=== PATIENT | female | born 1955 | race Caucasian/White ===

== ENCOUNTER 2020-06-14 10:52 | Outpatient (NON) | payer MEDICARE, OTHER, SELFPAY ==
[2020-06-14 22:56] LABS: SARS-CoV-2 RNA PCR Negative
== END 2020-06-14 10:53 ==
PROVIDERS: PCP Family Medicine; Visit Provider Nurse Practitioner Family
DX: Z20.828 Contact with and (suspected) exposure to other viral communicable diseases (principal); R68.89 Other general symptoms and signs; J06.9 Acute upper respiratory infection, unspecified; R05 Cough
CPT/HCPCS: 87635; C9803; U0003

== ENCOUNTER 2020-07-06 12:55 | Outpatient (CLI) | payer MEDICARE, OTHER, SELFPAY ==
--- NOTE | ~2020-07-06 | XR_ITS ---
EXAMINATION: XR chest 2V DATE: 07/06/2020 13:23 INDICATION: Cough. TECHNIQUE: Frontal and lateral views of the chest were obtained. COMPARISON: Chest 2 views 09/13/2017 FINDINGS: The chest demonstrates clear lungs without pneumonia, pleural effusion, or pneumothorax. Th e heart size is normal. IMPRESSION: 1. No acute cardiopulmonary disease. Reviewed, dictated and finalized at location B. LY READINESS SUPPORT ASSISTANT
== END 2020-07-06 12:56 | disposition home or self-care (01) ==
PROVIDERS: PCP Family Medicine; Visit Provider Nurse Practitioner Family
DX: R05 Cough (principal)
CPT/HCPCS: 71046

== ENCOUNTER → 2020-12-20 06:47 | Outpatient (CLI) | payer MEDICARE, OTHER, SELFPAY ==
[2020-12-20 19:58] LABS: SARS-CoV-2 RNA PCR Negative
== END ==
PROVIDERS: PCP Family Medicine; Visit Provider Nurse Practitioner Family
DX: R05 Cough (principal); Z20.822 Contact with and (suspected) exposure to COVID-19
CPT/HCPCS: C9803; U0003; U0005

== ENCOUNTER 2021-01-11 10:18 | Outpatient (CLI) | payer MEDICARE, OTHER, SELFPAY ==
--- NOTE | ~2021-01-11 | MM_ITS ---
EXAMINATION: MM screening francesco BI w meagan HISTORY: Screening TECHNIQUE: Craniocaudal and mediolateral oblique 3-D tomosynthesis images were obtained and synthetic 2-D images were generated. CAD analysis was submitted and interpreted. COMPARISON: Comparison to multiple prior studies sequentially, with oldest reviewed study dated 11/09/2015. BREAST PARENCHYMAL COMPOSITION: There are scattered areas of fibroglandular density. FINDINGS: There is no evidence of suspicious mass, calcification, or architectural distortion to sugg est malignancy in either breast. There has been no suspicious interval change. IMPRESSION: 1. No mammographic evidence of malignancy. 2. Recommend routine screening mammography in one year. BI-RADS Category 1: Negative Reviewed, dictated and finalized at location A.
== END 2021-01-11 10:19 | disposition home or self-care (01) ==
LOC: ANHIMG 10:21
PROVIDERS: PCP Family Medicine; Visit Provider Obstetrics & Gynecology
DX: Z12.31 Encounter for screening mammogram for malignant neoplasm of breast (principal)
CPT/HCPCS: 77063; 77067

== ENCOUNTER 2022-09-07 09:38 | Outpatient (CLI) | payer MEDICARE, SELFPAY ==
--- NOTE | ~2022-09-07 | MM_ITS ---
EXAMINATION: MM screening francesco BI w meagan HISTORY: Screening TECHNIQUE: Craniocaudal and mediolateral oblique 3-D tomosynthesis images were obtained and synthetic 2-D images were generated. CAD analysis was submitted and interpreted. COMPARISON: Comparison to multiple prior studies sequentially, with oldest reviewed study dated 10/2016. BREAST PARENCHYMAL COMPOSITION: Breast composed of scattered areas of fibroglandular density FINDINGS: There is no evidence of suspicious mass, calcification, or architectural distortion to sugg est malignancy in either breast. There has been no suspicious interval change. IMPRESSION: 1. No mammographic evidence of malignancy. 2. Recommend routine screening mammography in one year. BI-RADS Category 1: Negative Reviewed, dictated and finalized at location A. AG APPLIQUER
--- NOTE | ~2022-09-07 | DEXA_ITS ---
Bone Density Report Name: FABIÁN ANNE Age: 67 Sex: Female Ethnicity: White Date of : 1955 Indication: osteopenia; monitoring treatment; hysterectomy; postmenopausal Referring Provider: LIANG TSE Study: Bone densitometry was performed. Exam Date: September 07, 2022 Accession number: [id number] Bone Density: Region BMD T-score Z-score Classification AP Spine(L1-L4) 0.907 -1.3 0.8 Osteopenia Femoral Neck (Left) 0.618 -2.1 -0.3 Osteopenia Total Hip (Left) 0.670 -2.2 -0.8 Osteopenia Femoral Neck (Right) 0.663 -1.7 0.1 Osteopenia Total Hip (Right) 0.691 -2.1 -0.6 Osteopenia Total Hip Mean 0.680 -2.2 -0.7 Osteopenia World Health Organization criteria for BMD impression classify patients as: Normal (T-score at or above -1.0), Osteopenia (T-score between -1.0 and -2.5), or Osteoporosis (T-score at or below -2.5). 10-year Fracture Risk: FRAX not reported because: Treated for osteoporosis Previous Exams: Region Exam Age BMD T-score BMD Change BMD Change Date g/cm2 vs Baseline vs Previous AP Spine (L1-L4) 09/07/2022 67 0.907 -1.3 -0.003 (-0.3%) -0.033 (-3.5%) 07/03/2018 63 0.939 -1.0 0.030 (3.3%)* 0.030 (3.3%)* 11/23/2015 60 0.909 -1.3 Total Hip(Left) 09/07/2022 67 0.670 -2.2 -0.016 (-2.3%) -0.017 (-2.4%) 07/03/2018 63 0.687 -2.1 0.001 (0.1%) 0.001 (0.1%) 11/23/2015 60 0.686 -2.1 Total Hip(Right) 09/07/2022 67 0.691 -2.1 -0.019 (-2.6%) -0.026 (-3.7%) 07/03/2018 63 0.717 -1.8 0.008 (1.1%) 0.008 (1.1%) 11/23/2015 60 0.710 -1.9 *Denotes significance at 95% confidence level, LSC for AP Spine = 0.022 g/cm2, LSC for Total Hip = 0.027 g/cm2 Clinical Information Provided by Patient: Is being treated for osteoporosis Has used the following medications: Evista (i.e. raloxifene), Vitamin D Has the following medical conditions: Hysterectomy Patient maximum height was 62.5 Menopause Age: 38 No regular weight bearing exercise Onset of menses at age 9 Number of children 2 Impression: The patient has low bone mass, based on the Left Total Hip T-score. The BMD for the AP Spine (L1-L4) decreased, changing by -3.5% since the last DXA exam. Discussion: SIGNIFICANT BONE LOSS OBSERVED. Adherence to therapy (including calcium and vitamin D intake) should be assessed. If compliance is not a factor, review management and exclusion of secondary causes of bone loss. It is important to ask patien
== END 2022-09-07 09:39 | disposition home or self-care (01) ==
PROVIDERS: PCP Family Medicine; Visit Provider Obstetrics & Gynecology Gynecology
DX: Z12.31 Encounter for screening mammogram for malignant neoplasm of breast (principal); M85.80 Other specified disorders of bone density and structure, unspecified site; Z78.0 Asymptomatic menopausal state
CPT/HCPCS: 77063; 77067; 77080

== ENCOUNTER 2025-05-20 09:04 | Outpatient (CLI) | payer MEDICARE, SELFPAY ==
--- NOTE | ~2025-05-20 | DEXA_ITS ---
Bone Density Report Name: FABIÁN ANNE Age: 69 Sex: Female Ethnicity: White Date of : 1955 Indication: osteopenia; monitoring treatment; height loss; hysterectomy; Referring Provider: LIANG TSE Study: Bone densitometry was performed. Exam Date: May 20, 2025 Accession number: [id number] Bone Density: Region BMD T-score Z-score Classification AP Spine(L1-L4) 0.903 -1.3 0.9 Osteopenia Femoral Neck (Left) 0.578 -2.4 -0.5 Osteopenia Total Hip (Left) 0.713 -1.9 -0.3 Osteopenia Femoral Neck (Right) 0.598 -2.3 -0.4 Osteopenia Total Hip (Right) 0.697 -2.0 -0.4 Osteopenia Total Hip Mean 0.705 -2.0 -0.4 Osteopenia World Health Organization criteria for BMD impression classify patients as: Normal (T-score at or above -1.0), Osteopenia (T-score between -1.0 and -2.5), or Osteoporosis (T-score at or below -2.5). 10-year Fracture Risk: FRAX not reported because: Treated for osteoporosis Previous Exams: Region Exam Age BMD T-score BMD Change BMD Change Date g/cm2 vs Baseline vs Previous AP Spine (L1-L4) 05/20/2025 69 0.903 -1.3 -0.006 (-0.7%) -0.004 (-0.4%) 09/07/2022 67 0.907 -1.3 -0.003 (-0.3%) -0.033 (-3.5%) 07/03/2018 63 0.939 -1.0 0.030 (3.3%)* 0.030 (3.3%)* 11/23/2015 60 0.909 -1.3 Total Hip(Left) 05/20/2025 69 0.713 -1.9 0.028 (4.0%)* 0.043 (6.5%)* 09/07/2022 67 0.670 -2.2 -0.016 (-2.3%) -0.017 (-2.4%) 07/03/2018 63 0.687 -2.1 0.001 (0.1%) 0.001 (0.1%) 11/23/2015 60 0.686 -2.1 Total Hip(Right) 05/20/2025 69 0.697 -2.0 -0.012 (-1.7%) 0.006 (0.9%) 09/07/2022 67 0.691 -2.1 -0.019 (-2.6%) -0.026 (-3.7%) 07/03/2018 63 0.717 -1.8 0.008 (1.1%) 0.008 (1.1%) 11/23/2015 60 0.710 -1.9 *Denotes significance at 95% confidence level, LSC for AP Spine = 0.022 g/cm2, LSC for Total Hip = 0.027 g/cm2 Clinical Information Provided by Patient: Is being treated for osteoporosis Has used the following medications: Evista (i.e. raloxifene), Vitamin D Has the following medical conditions: Hysterectomy Patient maximum height was 63.0 Menopause Age: 38 No regular weight bearing exercise Drinks caffeinated beverages Onset of menses at age 8 Number of children 2 Impression: The patient has low bone mass, based on the Left Femoral Neck T-score. No significant bone loss was observed. Discussion: PATIENT UNDER TREATMENT WITH NO SIGNIFICANT BMD LOSS SINCE LAST EXAM. In an untreated patient, BMD typically declines with age. A lack of decline or gain is usually a sign that treatment is efficacious and fracture risk is reduced. It is important to ask patients whether they are taking their medications and to encourage continued and appropriate compliance with their osteoporosis therapies to reduce fracture risk. It is also important to review their risk factors and encourage appropriate calcium and vitamin D intakes, exercise, fall prevention and other lifestyle measures. Follow-Up: Consider a repeat BMD and Vertebral Fracture Assessment (VFA) exam in 2 years or sooner if medically necessary, to reassess this patient's status. Reported by: RUFUS on 05/20/2025 9:42:00 AM. Reviewed, dictated and finalized at location A.
--- OUTSIDE RECORDS SUMMARY | 2025-05-20 09:41 | XMS_ITS | Encounter Summary ---
Author Organization [facility] Address [address] [place] [address] Care Team Providers Care Forest Fire Fighters Dispatcher Name Role Phone Kenny Knight MD Primary Care Provider Encounter Details Date Type Department Care Team (Late st Contact Info) Description 02/11/2019 Lab Requisition [facility] DermPath Lab [address] [place] [address] Oliver Payne MD [address] [place] [address] Social History Tobacco Use Types Packs/Day Years Used Date Smoking Tobacco: Never Assessed Comments Unknown Sex and Gender Information Value Date Recorded Sex Assigned at Not on file Legal 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 Gender Identity Not on file Sexual Orientation Not on file documented as of this encounter Plan of Treatment Not on file documented as of this encounter Procedures Procedure Name Priority Date/Time Associated Diagnosis Comments DERMATOPATHOLOGY Routine 02/10/2019 12:0 0 AM CDT documented in this encounter Results * DERMATOPATHOLOGY (02/10/2019 12:00 AM CDT) Case Report Dermatopathology Report Case: [id number] Authorizing Provider: Oliver Payne MD Collected: 02/10/2019 12:00 AM Pathologist: Haley Rivera MD Received: 02/11/2019 11:43 AM Specimen: Skin, right upper back 2:05 PM CDT DERMATOPATHOLOGY LABORATORY Final Diagnosis Specimen A. SKIN, right upper back: SEBORRHEIC KERATOSIS, IRRITATED AND INFLAMED (L82.0) PRESENT AT MARGIN 2:05 PM CDT DERMATOPATHOLOGY LABORATORY at 1405 CDT Clinical History Changing lesion. Check margins. 2:05 PM CDT DERMATOPATHOLOGY LABORATORY Gross Description Specimen A: Received is one formalin filled container labeled with the patient's name and designated right upper back. The specimen consists of a shave biopsy (3 pieces) measuring [id number], [id number], [id number]. The margins are inked green. Jar 0+. 2:05 PM CDT DERMATOPATHOLOGY LABORATORY Microscopic Description Specimen A. SKIN, right upper back: Sections show acanthosis, papillomatosis, hyperkeratosis, and squamous eddies. There is a lymphohistiocytic infiltrate within the papillary dermis. This lesion is present at the margin of the specimen. 2:05 PM CDT DERMATOPATHOLOGY LABORATORY Disclaimer An external and internal positive and negative controls are appropriate for the histochemical, immunohistochemical and immunofluorescence stain(s) in this case (if any), except where stated explicitly. The performance characteristics of the stain(s) cited in this report were developed and its performance characteristic determined by the Dermatopathology Laboratory at [facility], directed by Dr. David Gomez. These tests need not be, and therefore are not, approved by the [place] Food and Drug Administration. The tests are used for clinical purposes. Billing Codes Specimen Charges Stain Charges 70983 1 2:05 PM CDT DERMATOPATHOLOGY LABORATORY Embedded Images 2:05 PM CDT DERMATOPATHOLOGY LABORATORY Pathology/Cytolog y TISSUE SPECIMEN FROM SKIN / Unknown 02/10/2019 02/11/2019 11:43 AM CDT us Oliverman Payne MD LAB - PATHOLOGY/CYTOLOGY YVONNE HYMAN Final Result DERMATOPATHOLOGY LABORATORY [facility] - Department of Dermatology [address] [place] [address], 5th [place] [address], [facility] [phone] documented in this encounter Visit Diagnoses Not on filedocumented in this encounter Care Teams Forest Fire Fighters Dispatcher Relationship Specialty Start Date End Date Kenny Knight MD [address] [place] [address] PCP - General 02/11/19 documented as of this encounter
--- OUTSIDE RECORDS SUMMARY | 2025-05-20 09:41 | XMS_ITS | Clinical Summary ---
Author Organization [facility] Address [address] [address] Care Team Providers Care Print Color Matcher Name Role Phone Kenny Knight MD Primary Care Provider [phone] Source Comments [facility],non-owned Affiliates and Associated Physician Practices is amultiple site organization consisting of ambulatory clinics and hospital sitesin [place], [place], [place] and [place]. This disclosure is being madepursuant to the Care Everywhere program and may not contain all information available regarding this patient. Last updated 18.[facility] Allergies Active Allergy Reactions Criticality Noted Date Comments Penicillins Urticaria Medium 01/27/2021 Medications * Be aware that medications may not be up to date on this document. Alwaysverify current medications with the patient. citalopram (CELEXA) 20 MG tablet Take 10 mg by mouth once daily 12/16/2020 Active olmesartan-hydr oCHLOROthiazide (BENICAR HCT) 40-12.5 MG tablet Take 1 tablet by mouth once daily 12/01/2020 Active raloxifene (EVISTA) 60 MG tablet Take 60 mg by mouth once daily 12/01/2020 Active zolpidem (AMBIEN) 5 MG tablet Take 5 mg by mouth at bedtime 01/03/2021 Active Active Problems No known active problems Social History Tobacco Use Types Packs/Day Years Used Date Smoking Tobacco: Former Smokeless Tobacco: Never Alcohol Use Standard Drinks/Week Comments Yes 0 (1 standard drink = 0.6 oz pur e alcohol) Comments Unknown Sex and Gender Information Value Date Recorded Sex Assigned at Not on file Legal Sex Female 9: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 Gender Identity Not on file Sexual Orientation Not on file Last Filed Vital Signs Vital Sign Reading Time Taken Comments Blood Pressure 158/91 07/19/2021 12:45 PM 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 Pulse 78 07/19/2021 12:45 PM 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 Temperature - - Respiratory Rate - - Oxygen Saturation - - Inhaled Oxygen Concentration - - Weight 55.3 kg (122 lb) 07/19/2021 8:19 AM 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 Height 157.5 cm (5' 2) 07/19/2021 8:19 AM 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 Body Mass Index 22.31 07/19/2021 8:19 AM 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 Plan of Treatment Health Maintenance Due Date Last Done Comments BONE DENSITY TESTING 1955 COLON MONITORING 1955 COLONOSCOPY - COLON CA SCREENING 1955 CT COLONOGRAPHY - COLON CA SCREENING 1955 FIT - COLON CA SCREENING 1955 FLEX SIG - COLON CA SCREENING 1955 LIPID TESTING 1955 MAMMOGRAM 1955 HEPATITIS C SCREENING 05/26/1971 DTAP/TDAP/TD VACCINES (1 - Tdap) 1972 PNEUMOCOCCAL VACCINE 50+ (1 of 1 - PCV) 2003 ZOSTER VACCINE (1 of 2) 2003 COLOGUARD (AGES 45-75) - COL ON CA SCREENING 10/24/2022 10/24/2019 Colorectal Cancer Screening 10/24/2022 DEPRESSION SCREENING 08/27/2024 COVID-19 VACCINE (1 - 2023-2 5 season) 2025 INFLUENZA VACCINE (#1) 2025 Respiratory Syncytial Virus (RSV) Vaccine Pt: or over 60 yrs (1 - 1-dose 75+ series) 2028 HEPATITIS B VACCINE Aged Out No longe r eligible based on patient's age to complete this topic HIB VACCINE Aged Out No longer eligi ble based on patient's age to complete this topic HPV VACCINE Aged Out No longer eligi ble based on patient's age to complete this topic MENINGOCOCCAL (Group B) VACC INE SHARED DECISION-MAKING Aged Out No longer eligibl e based on patient's age to complete this topic MENINGOCOCCAL GROUPS A/C/Y/W VACCINE Aged Out No longer eligible b ased on patient's age to complete this [place] [address] [place] [address] MEDICARE [facility] Care Teams Print Color Matcher Relationship Specialty Start Date End Date Kenny Knight MD [address] [place] [phone] PCP - General 02/11/19
--- OUTSIDE RECORDS SUMMARY | 2025-05-20 09:41 | XMS_ITS | Encounter Summary ---
Author Organization [facility] Address [address] [place] [address] Care Team Providers Care Child Development Teacher Name Role Phone Oliver Payne MD Primary Care Provider [phone] Encounter Details Date Type Department Care Team (Late st Contact Info) Description 12/18/2022 Orders Only [facility] Health Information Management [address] [place] [id number] Scanning, Provider Social History Tobacco Use Types Packs/Day Years Used Date Smoking Tobacco: Former Smokeless Tobacco: Never Alcohol Use Standard Drinks/Week Comments Yes 0 (1 standard drink = 0.6 oz pur e alcohol) Comments Unknown Sex and Gender Information Value Date Recorded Sex Assigned at Not on file Legal Sex Female 10:14 AM GROUP HOME 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 Gender Identity Female 01/13/2021 8:45 AM CDT Sexual Orientation Straight 01/13/2021 8: 45 AM CDT documented as of this encounter Plan of Treatment Not on file documented as of this encounter Procedures Procedure Name Priority Date/Time Associated Diagnosis Comments SCAN - LABS 12/18/2022 documented in this encounter Results * SCAN - LABS (12/18/2022) us Provider Scanning Final Result documented in this encounter Visit Diagnoses Not on filedocumented in this encounter Care Teams Child Development Teacher Relationship Specialty Start Date End Date Oliver Payne MD PCP - General Family Medicine 11/07/18 documented as of this encounter
--- OUTSIDE RECORDS SUMMARY | 2025-05-20 09:41 | XMS_ITS | Clinical Summary ---
Author Organization [facility] Address [address] [place] [address] Care Team Providers Care Trim Setter Helper Name Role Phone Oliver Payne MD Primary Care Provider Allergies Active Allergy Reactions Criticality Noted Date Comments Penicillins Medications citalopram (CeleXA) 20 mg tablet 9 Active zolpidem (AMBIEN) 5 mg tablet 1 Active aspirin (Adult Low Dose Aspirin) 81 mg enteric coated tablet Take 1 tablet (81 mg total) by mouth daily 1 Active olmesartan-hydrochl orothiazide (BENICAR HCT) 40-12.5 mg per tablet Take 1 tablet by mouth daily Active alendronate (FOSAMAX) 70 mg tablet Take 1 tablet (70 mg total) by mouth once a week 3 Active ergocalciferol, vitamin D2, (VITAMIN D2 ORAL) 8 Active amLODIPine (NORVASC) 2.5 mg tablet Take 1 tablet (2.5 mg total) by mouth daily 30 tablet 11 3 09/08/19 26 Active nitroglycerin (NITROSTAT) 0.[address] 1 tablet (0.4 mg total) under the tongue every 5 (five) minutes as needed for chest pain Max 3 doses. 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 03/04/2021 HTN (hypertension), benign 03/04/2021 Chest pressure 03/04/2021 Facial pain, atypical 11/08/2018 Chronic infection of sinus 03/25/2012 Resolved Problems Problem Noted Date Diagnosed Date Resolved Date Dyslipidemia 03/04/2021 08/03/2021 Medical History Medical History Date Comments Hypertension Hypertension Hx Other Medical Depressed mood HTN (hypertension) Family History Medical History Relation Name Comments Cancer Father Lupus Mother Relation Name Status Comments Father Mother Social History Tobacco Use Types Packs/Day Years Used Date Smoking Tobacco: Former Smokeless Tobacco: Never Alcohol Use Standard Drinks/Week Comments Yes 0 (1 standard drink = 0.6 oz pur e alcohol) Comments Unknown Sex and Gender Information Value Date Recorded Sex Assigned at Not on file Legal Sex Female 10:14 AM MILL OILER Gender Identity Female 01/13/2021 8:45 AM CDT Sexual Orientation Straight 01/13/2021 8: 45 AM CDT Obstetrics History Last Filed Vital Signs Vital Sign Reading Time Taken Comments Blood Pressure 156/96 09/08/2024 9:45 AM MILL OILER Pulse 74 09/08/2024 9:45 AM MILL OILER Temperature - - Respiratory Rate 16 03/04/2021 10:58 AM CDT Oxygen Saturation 95% 09/08/2024 9:45 AM MILL OILER Inhaled Oxygen Concentration - - Weight 49.9 kg (110 lb) 09/08/2024 9:45 AM MILL OILER Height 157.5 cm (5' 2) 09/08/2024 9:45 AM MILL OILER Body Mass Index 20.12 09/08/2024 9:45 AM MILL OILER Plan of Treatment Health Maintenance Due Date Last Done Comments Breast Cancer Screening-Mammogram 1955 Colon Cancer Screening-Colonoscopy 1955 Depression Screening 1955 Fall Risk Assessment 1955 Hepatitis C Screening 1955 Osteoporosis Screening-Bone Density Scan 1955 DTaP/Tdap/Td Vaccine (1 - Tdap) 1964 Hepatitis B Screening 1971 Zoster Vaccine (1 of 2) 2003 Well Visit 65+ 2018 Influenza Vaccine (#1) 2025 , 05/25/2018, 04/23/2014, Additional history exists Pneumococcal vaccine 65+ (3 of 3 - PCV20 or PCV21) 05/25/2025 05/25/2020, 06/26/2017 Insurance [place] [id number] [employer] [facility] [address] [facility] Care Teams Trim Setter Helper Relationship Specialty Start Date End Date Oliver Payne MD PCP - General Family Medicine 11/07/18
--- OUTSIDE RECORDS SUMMARY | 2025-05-20 09:41 | XMS_ITS | Encounter Summary ---
Author Organization [facility] Address [address] [address] Care Team Providers Care Shipyard Laborer Name Role Phone Kenny Knight MD Primary Care Provider Encounter Details Date Type Department Care Team (Late st Contact Info) Description 01/05/2021 Lab Requisition [facility] DermPath Lab [address] [place] [address] Max Sr MD [address] [place] [address] Social History Tobacco Use Types Packs/Day Years Used Date Smoking Tobacco: Never Assessed Comments Unknown Sex and Gender Information Value Date Recorded Sex Assigned at Not on file 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 Gender Identity Not on file Sexual Orientation Not on file documented as of this encounter Plan of Treatment Not on file documented as of this encounter Procedures Procedure Name Priority Date/Time Associated Diagnosis Comments DERMATOPATHOLOGY Routine 01/04/2021 12:0 0 AM CDT documented in this encounter Results * DERMATOPATHOLOGY (01/04/2021 12:00 AM CDT) Case Report Dermatopathology Report Case: [id number] Authorizing Provider: Max Sr MD Collected: 01/04/2021 12:00 AM Ordering Location: [facility] DermPath Lab Received: 01/05/2021 01:39 PM Pathologist: Rosa Schultz MD Specimen: Skin, right upper cut lip below ala 12:30 PM CDT DERMATOPATHOLOGY LABORATORY Final Diagnosis Specimen A. SKIN, right upper cut lip below ala: BASAL CELL CARCINOMA, NODULAR TYPE (C44.319) 12:30 PM CDT DERMATOPATHOLOGY LABORATORY at 1230 CDT Clinical History R/O BCC. 12:30 PM CDT DERMATOPATHOLOGY LABORATORY Gross Description Specimen A: Received is one formalin filled container labeled with the patient's name and designated right upper cut lip below ala. The specimen consists of a shave biopsy measuring [id number]. Jar 0. 12:30 PM CDT DERMATOPATHOLOGY LABORATORY Microscopic Description Specimen A. SKIN, right upper cut lip below ala: Within the dermis there are aggregates of basaloid cells with a high nuclear to cytoplasmic ratio and peripheral palisading. 12:30 PM CDT DERMATOPATHOLOGY LABORATORY Disclaimer An external and internal positive and negative controls are appropriate for the histochemical, immunohistochemical and immunofluorescence stain(s) in this case (if any), except where stated explicitly. The performance characteristics of the stain(s) cited in this report were developed and its performance characteristic determined by the Dermatopathology Laboratory at [facility], directed by Dr. David Gomez. These tests need not be, and therefore are not, approved by the [place] Food and Drug Administration. The tests are used for clinical purposes. Billing Codes Specimen Charges Stain Charges 51901 1 12:30 PM CDT DERMATOPATHOLOGY LABORATORY Embedded Images 12:30 PM CDT DERMATOPATHOLOGY LABORATORY Pathology/Cytolog y TISSUE SPECIMEN FROM SKIN / Unknown 01/04/2021 01/05/2021 1:39 PM CDT us Max Sr MD LAB - PATHOLOGY/CYTOLOGY ORD ERABLES Final Result DERMATOPATHOLOGY LABORATORY [facility] - Department of Dermatology [address], [address] [phone] documented in this encounter Visit Diagnoses Not on filedocumented in this encounter Care Teams Shipyard Laborer Relationship Specialty Start Date End Date Kenny Knight MD [address] [place] [address] PCP - General 02/11/19 documented as of this encounter
== END 2025-05-20 09:05 | disposition home or self-care (01) ==
LOC: ANHFOHIMG 09:06
PROVIDERS: PCP Family Medicine; Visit Provider Obstetrics & Gynecology Gynecology
DX: M85.88 Other specified disorders of bone density and structure, other site (principal); Z78.0 Asymptomatic menopausal state; M85.852 Other specified disorders of bone density and structure, left thigh; M85.851 Other specified disorders of bone density and structure, right thigh
CPT/HCPCS: 77080